=== PATIENT | male | born 1955 | race Caucasian/White ===

== ENCOUNTER 2021-05-05 15:23 | Emergency (ER) | payer OTHER ==
[2021-05-05 16:21] LABS: #Basophils 0.1 10x3/uL (0.0-0.2); #Eosinphils 0.1 10x3/uL (0.0-0.5); #Monocytes 1.1 10x3/uL (0.0-1.1); #Neutrophils 6.8 10x3/uL (1.5-8.4); %Basophils 0.6 % (0.0-2.0); %Eosinophils 1.2 % (0.0-6.0); %Lymphocytes 13.8 % (18.0-47.0); %Monocytes 11.5 % (0.0-10.0); %Neutrophils 71.6 % (40.0-75.0); Hemoglobin 14.2 g/dL (13.5-17.5); Mean Corpuscular HGB CONC 32.2 g/dL (32.0-36.0); Mean Corpuscular Hemoglobin 30.5 pg (27.0-33.0); Mean Corpuscular Volume 94.6 fl (81.2-95.1); Mean Platelet Volume 11.1 fl (7.4-10.4); Platelet Count 272 10x3/uL (150-450); RBC Distribution Width 13.9 % (11.5-14.5); Red Blood Cell (RBC) Count 4.66 10x6/uL (4.32-5.72); White Blood Cell (WBC) Count 9.5 10x3/uL (3.5-10.5)
[2021-05-05 16:30] LABS: ALT (SGPT) 20 U/L (8-55); AST (SGOT) 20 U/L (5-34); Albumin 4.2 g/dL (3.4-4.8); Alkaline Phosphatase 98 U/L (40-110); Anion Gap 14 mmol/L (10-20); BUN (Urea Nitrogen) 20 mg/dL (8.4-25.7); Bilirubin, Total 0.8 mg/dL (0.2-1.2); CK (CPK) 92 U/L (30-200); Calc. Creatinine Clearance 0 mL/min (70-130); Carbon Dioxide 26 mmol/L (23-31); Chloride 102 mmol/L (98-107); Globulin 2.9 g/dL (2.4-3.5); Glucose 109 mg/dL (80-115); Potassium 4.6 mmol/L (3.5-5.1); Protein, Total 7.1 g/dL (5.8-8.1); Sodium 137 mmol/L (136-145)
[2021-05-05] MEDS ORDERED: methylPREDNISolone Sod Succ/PF 125 MG/2 ML VIAL ONE (17:19)
[2021-05-05] MEDS ORDERED: Ventolin HFA Inhaler 60 PUFF INHALER ONE (17:20)
== END 2021-05-05 20:05 ==
LOC: CSHERS 15:23 → EEVIPCON 15:23 → CSHERS 20:05
DX: J44.1 Chronic obstructive pulmonary disease with (acute) exacerbation (principal); I49.3 Ventricular premature depolarization; I10 Essential (primary) hypertension; E78.5 Hyperlipidemia, unspecified; K21.9 Gastro-esophageal reflux disease without esophagitis; M19.90 Unspecified osteoarthritis, unspecified site
CPT/HCPCS: 36415; 71045; 80053; 82550; 83605; 83880; 84484; 85025; 93005; 93010; 96374; J2930

== ENCOUNTER 2025-01-22 02:48 | Inpatient (IN) | payer OTHER ==
[2025-01-22 03:27] LABS: #Basophils 0.04 10x3/uL (0.0-0.2); #Eosinophils 0.05 10x3/uL (0.0-0.5); #Monocytes 1.14 10x3/uL (0.0-1.1); #Neutrophils 7.68 10x3/uL (1.5-8.4); %Basophils 0.4 % (0.0-2.0); %Eosinophils 0.5 % (0.0-6.0); %Lymphocytes 11.4 % (18.0-47.0); %Monocytes 11.2 % (0.0-10.0); %Neutrophils 75.6 % (40.0-75.0); Hematocrit 35.1 % (38.8-50.0); Hemoglobin 11.4 g/dL (13.5-17.5); Mean Corpuscular Hemoglobin 29.8 pg (27.0-33.0); Mean Corpuscular Volume 91.6 fL (81.2-95.1); Platelet Count 394 10x3/uL (150-450); Red Blood Cell (RBC) Count 3.83 10x6/uL (4.32-5.72); White Blood Cell (WBC) Count 10.16 10x3/uL (3.5-10.5)
[2025-01-22 03:47] LABS: ALT (SGPT) 108 U/L (Less than 45); AST (SGOT) 48 U/L (11-34); Albumin 2.7 g/dL (3.1-4.5); Alkaline Phosphatase 91 U/L (40-110); Anion Gap 15 mmol/L (10-20); BUN (Urea Nitrogen) 31 mg/dL (8.4-25.7); Bilirubin, Total 1.7 mg/dL (0.3-1.2); Calc. Creatinine Clearance 0 mL/min (70-130); Calcium 8.4 mg/dL (7.8-10.44); Carbon Dioxide 28 mmol/L (23-31); Chloride 100 mmol/L (98-107); Globulin 3.5 g/dL (2.4-3.5); Glucose 101 mg/dL (80-115); Potassium 4.5 mmol/L (3.5-5.1); Sodium 138 mmol/L (136-145)
[2025-01-22 03:53] LABS: Troponin I 0.125 ng/mL (< 0.028)
[2025-01-22] MEDS ORDERED: Aspirin 325 MG TAB ONE (04:14)
[2025-01-22] MEDS ORDERED: Famotidine 20 MG TAB ONE (04:15)
[2025-01-22] MEDS ORDERED: Nitroglycerin 0.4 MG TAB (25 Tab Bottle) SL PRN (04:57)
[2025-01-22] MEDS ORDERED: Ondansetron PF 4 MG/2 ML Vial IVP PRN (04:57)
[2025-01-22] MEDS ORDERED: Acetaminophen 325 MG TAB PO PRN (04:57)
[2025-01-22] MEDS ORDERED: Electrolyte Replacement Protocol 1 EACH FS PRN (05:00)
[2025-01-22 05:51] LABS: Troponin I 0.128 ng/mL (< 0.028)
[2025-01-22] MEDS: dilTIAZem 30 MG TAB PO SCH (05:57)
[2025-01-22 08:25] LABS: Glucose, Urine (Dipstick) Normal (Negative); Leukocyte 25 (Negative); Protein, Urine (Dipstick) 15 mg/dl (Neg-Trace); Specific Gravity, Urine 1.015 (1.005-1.030)
[2025-01-22 08:36] LABS: Bacteria/HPF Rare-Few HPF (None Seen); CAUTI Indications for Culture Dysuria,urgency,freq; RBC/HPF 0-3 HPF (0-3); WBC/HPF 0-3 HPF (0-3)
[2025-01-22 08:37] LABS: Urine Culture Reflex No No
[2025-01-22 08:50] LABS: Troponin I 0.157 ng/mL (< 0.028)
[2025-01-22] MEDS: Aspirin Chewable 81 MG TAB PO SCH (09:45)
[2025-01-22] MEDS: Famotidine 20 MG TAB PO SCH (09:45)
[2025-01-22] MEDS: DULoxetine 30 MG CAP PO SCH (09:45)
[2025-01-22 12:33] LABS: ALT (SGPT) 152 U/L (Less than 45); AST (SGOT) 110 U/L (11-34); Albumin 2.7 g/dL (3.1-4.5); Alkaline Phosphatase 92 U/L (40-110); Anion Gap 17 mmol/L (10-20); BUN (Urea Nitrogen) 36 mg/dL (8.4-25.7); Bilirubin, Total 1.9 mg/dL (0.3-1.2); Calc. Creatinine Clearance 82 mL/min (70-130); Calcium 8.7 mg/dL (7.8-10.44); Carbon Dioxide 22 mmol/L (23-31); Chloride 99 mmol/L (98-107); Globulin 3.8 g/dL (2.4-3.5); Glucose 140 mg/dL (80-115); Magnesium 2.5 mg/dL (1.6-2.6); Potassium 4.4 mmol/L (3.5-5.1); Sodium 134 mmol/L (136-145)
[2025-01-22] MEDS: Divalproex Sodium DR 500 MG TAB PO SCH (20:44)
[2025-01-22] MEDS: Furosemide 40 MG TAB PO SCH (20:44)
[2025-01-22] MEDS ORDERED: Furosemide 40 MG TAB PO SCH (21:00)
[2025-01-22 22:31] LABS: Chlam.trachomatis by PCR,Urine Not Detected (NotDetected); GC N.gonorrhoeae PCR,UrineVOID Not Detected (NotDetected)
[2025-01-23 05:14] LABS: #Basophils 0.06 10x3/uL (0.0-0.2); #Eosinophils Less than 0.03 10x3/uL (0.0-0.5); #Monocytes 1.09 10x3/uL (0.0-1.1); #Neutrophils 17.35 10x3/uL (1.5-8.4); %Basophils 0.3 % (0.0-2.0); %Eosinophils 0.1 % (0.0-6.0); %Lymphocytes 4.0 % (18.0-47.0); %Monocytes 5.5 % (0.0-10.0); %Neutrophils 87.6 % (40.0-75.0); Hematocrit 35.1 % (38.8-50.0); Hemoglobin 11.4 g/dL (13.5-17.5); Mean Corpuscular Hemoglobin 29.8 pg (27.0-33.0); Mean Corpuscular Volume 91.9 fL (81.2-95.1); Platelet Count 379 10x3/uL (150-450); Red Blood Cell (RBC) Count 3.82 10x6/uL (4.32-5.72); White Blood Cell (WBC) Count 19.82 10x3/uL (3.5-10.5)
[2025-01-23 05:33] LABS: Anion Gap 18 mmol/L (10-20); BUN (Urea Nitrogen) 53 mg/dL (8.4-25.7); Calc. Creatinine Clearance 54 mL/min (70-130); Calcium 8.7 mg/dL (7.8-10.44); Carbon Dioxide 22 mmol/L (23-31); Cardiac Risk 4.1 (Less than 4.5); Chloride 96 mmol/L (98-107); Cholesterol 65 mg/dl (< 200 Desired); Glucose 110 mg/dL (80-115); HDL Cholesterol 16 mg/dL (>60 Neg Risk); LDL Cholesterol, Calculated 42 mg/dL; Potassium 4.9 mmol/L (3.5-5.1); Sodium 131 mmol/L (136-145); Triglycerides 34 mg/dL (Less than 150)
[2025-01-23] MEDS: Albuterol 2.5 MG (3 mL) NEB NEB PRN (08:00)
[2025-01-23] MEDS ORDERED: Aspirin 81 mg Enteric Coated Tablet PO SCH (09:00)
[2025-01-23] MEDS: NOREPINEPHRINE 8 MG/250 ML-D5W 250 ML IVPB SCH (09:22)
[2025-01-23] MEDS: VANCOMYCIN 2 GRAM/400 ML BAG 2 GM in Premix 1 BAG IVPB SCH (10:04)
[2025-01-23 10:36] LABS: ALV-art Gradient 302.250 mmHg (0-20); Actual Bicarbonate (HCO3a) 23.0 mEq/L (22-28); Analyzer IN Cardio CS ICU; Base Excess (BEa) -1.4 mEq/L (-2.0 to +3.0); CO2 Tension 37.4 mmHg (35.0-45.0); Calcium, Ionized (arterial) 1.12 mmol/L (1.12-1.30); Critical Notified By: Udy, RRT; Hematocrit-ABG 38 % (42.0-52.0); Hemoglobin (Hb) 12.8 g/dL (14.0-18.0); O2 Tension (PaO2), arterial 78.8 mmHg (> 70.0); Potassium - ABG Lab 4.80 mmol/L (3.70-5.30); Puncture Site Right Radial artery; RapidComm Collect By Udy, RRT; pH, Arterial 7.406 (7.35-7.45)
[2025-01-23 10:43] LABS: Legionella Urinary Ag Negative (Negative)
[2025-01-23 10:45] LABS: Strep pneumo Urine Ag NEGATIVE (NEGATIVE)
[2025-01-23 11:49] LABS: Influenza A by NAA Not Detected (NotDetected); Influenza B by NAA Not Detected (NotDetected); SARS-CoV-2 NAA Rapid Test Not Detected (NotDetected)
[2025-01-23] MEDS: Furosemide 40 MG (4 mL) VIAL SLOW IVP SCH ×2 (11:49→18:09)
[2025-01-23] MEDS: Famotidine 20 MG TAB PO SCH (17:12)
[2025-01-23] MEDS: Spironolactone 25 MG TAB PO SCH (17:13)
[2025-01-23] MEDS: Vancomycin 1 GM in Sodium Chloride 0.9% 250 ML 250 ML IVPB SCH (20:39)
[2025-01-23] MEDS ORDERED: Furosemide 40 MG (4 mL) VIAL SLOW IVP SCH (21:00)
[2025-01-24 03:59] LABS: Hematocrit 36.6 % (38.8-50.0); Hemoglobin 11.7 g/dL (13.5-17.5); Mean Corpuscular Hemoglobin 29.2 pg (27.0-33.0); Mean Corpuscular Volume 91.3 fL (81.2-95.1); Platelet Count 340 10x3/uL (150-450); Red Blood Cell (RBC) Count 4.01 10x6/uL (4.32-5.72); White Blood Cell (WBC) Count 17.61 10x3/uL (3.5-10.5)
[2025-01-24 04:09] LABS: Vancomycin, Random 26.5 ug/mL (See Comment)
[2025-01-24 04:11] LABS: ALT (SGPT) 2322 U/L (Less than 45); AST (SGOT) 1872 U/L (11-34); Albumin 2.4 g/dL (3.1-4.5); Alkaline Phosphatase 99 U/L (40-110); Anion Gap 16 mmol/L (10-20); BUN (Urea Nitrogen) 54 mg/dL (8.4-25.7); Bilirubin, Total 1.7 mg/dL (0.3-1.2); Calc. Creatinine Clearance 72 mL/min (70-130); Calcium 8.1 mg/dL (7.8-10.44); Carbon Dioxide 24 mmol/L (23-31); Chloride 103 mmol/L (98-107); Globulin 3.4 g/dL (2.4-3.5); Glucose 140 mg/dL (80-115); Potassium 3.9 mmol/L (3.5-5.1); Sodium 139 mmol/L (136-145)
[2025-01-24 04:23] LABS: Hypersegmented Neutrophil MODERATE; MDiff Complete? YES; Platelet Adequacy Comment Appears Adequate; RBC Morphology Within Normal Limits; Reflex for Review?? YES
[2025-01-24 04:56] LABS: Actual Bicarbonate (HCO3v) 30.1 mEq/L (22-28); Analyzer IN Cardio CS ICU; Base Excess 5.8 mEq/L (-2 - +2); Calcium, Ionized (venous) 1.08 mmol/L (1.16-1.32); Chloride (VBG) 99 mmol/L (98-106); Hematocrit-VBG 39 % (42.0-52.0); Hemoglobin (Hb) 13.1 g/dL (12.6-17.4); Potassium (VBG) 3.83 mmol/L (3.70-5.30); Puncture Site Other Site; RapidComm Collect By Lab; Sodium 135 mmol/L (133-146)
[2025-01-24 05:27] LABS: Magnesium 2.6 mg/dL (1.6-2.6)
[2025-01-24 07:17] LABS: Magnesium 2.6 mg/dL (1.6-2.6)
[2025-01-24] MEDS: Potassium Chloride 20 MEQ in Premix 1 BAG IVPB SCH (11:25)
[2025-01-24] MEDS: Famotidine 20 MG TAB PO SCH (12:36)
[2025-01-24] MEDS: Guaifenesin DM 100-10/5 ML UDCUP PO PRN (17:09)
[2025-01-24] MEDS ORDERED: VANCOMYCIN 1.25 GM/250 ML BAG 1.25 GM in Premix 1 BAG IVPB SCH (20:00)
[2025-01-24 21:09] LABS: Potassium 4.1 mmol/L (3.5-5.1)
[2025-01-25 04:09] LABS: Hematocrit 37.3 % (38.8-50.0); Hemoglobin 11.6 g/dL (13.5-17.5); Mean Corpuscular Hemoglobin 29.3 pg (27.0-33.0); Mean Corpuscular Volume 94.2 fL (81.2-95.1); Platelet Count 298 10x3/uL (150-450); Red Blood Cell (RBC) Count 3.96 10x6/uL (4.32-5.72); White Blood Cell (WBC) Count 16.27 10x3/uL (3.5-10.5)
[2025-01-25 04:17] LABS: Vancomycin, Random 9.8 ug/mL (See Comment)
[2025-01-25 04:21] LABS: ALT (SGPT) 1672 U/L (Less than 45); AST (SGOT) 677 U/L (11-34); Albumin 2.3 g/dL (3.1-4.5); Alkaline Phosphatase 93 U/L (40-110); Anion Gap 9 mmol/L (10-20); BUN (Urea Nitrogen) 49 mg/dL (8.4-25.7); Bilirubin, Total 1.5 mg/dL (0.3-1.2); Calc. Creatinine Clearance 93 mL/min (70-130); Calcium 8.3 mg/dL (7.8-10.44); Carbon Dioxide 29 mmol/L (23-31); Chloride 104 mmol/L (98-107); Globulin 3.4 g/dL (2.4-3.5); Glucose 168 mg/dL (80-115); Magnesium 2.8 mg/dL (1.6-2.6); Potassium 4.2 mmol/L (3.5-5.1); Sodium 138 mmol/L (136-145)
[2025-01-25 05:36] LABS: Anisocytosis SLIGHT = 6-15 cells (100X) (0-5/hpf); Burr Cells SLIGHT = 2-5 cells (100X) (0-1/hpf); Hypersegmented Neutrophil SLIGHT; MDiff Complete? YES; Macrocytosis SLIGHT = 6-15 cells (100X) (0-5/hpf); Ovalocytes SLIGHT = 2-5 cells (100X) (0-1/hpf); Platelet Adequacy Comment Appears Adequate; Poikilocytosis SLIGHT = 6-15 cells (100X) (0-5/hpf)
[2025-01-25] MEDS ORDERED: Iopamidol 300 61% 100 ML VIAL FS ONE (09:35)
[2025-01-25] MEDS ORDERED: Sevoflurane 250 ML INH ANEST BOTTLE ONE (10:33)
[2025-01-25] MEDS ORDERED: Nitroglycerin 50 MG/250 ML BOT 0 ML ONE (13:25)
[2025-01-25] MEDS ORDERED: Lidocaine 1% (PF) 30 ML VIAL ONE (13:25)
[2025-01-25] MEDS ORDERED: PHENYLEPHRINE-NS 100 MCG/ML 10 ML SYRINGE ONE (13:25)
[2025-01-25] MEDS ORDERED: Heparin 10,000 UNITS/ 10 ML VIAL ONE (13:26)
[2025-01-25] MEDS: Cefdinir 300 MG CAP PO SCH (20:45)
[2025-01-26 04:10] LABS: Hematocrit 38.8 % (38.8-50.0); Hemoglobin 12.1 g/dL (13.5-17.5); Mean Corpuscular Hemoglobin 29.8 pg (27.0-33.0); Mean Corpuscular Volume 95.6 fL (81.2-95.1); Platelet Count 249 10x3/uL (150-450); Red Blood Cell (RBC) Count 4.06 10x6/uL (4.32-5.72); White Blood Cell (WBC) Count 13.40 10x3/uL (3.5-10.5)
[2025-01-26 04:26] LABS: ALT (SGPT) 1270 U/L (Less than 45); AST (SGOT) 272 U/L (11-34); Albumin 2.2 g/dL (3.1-4.5); Alkaline Phosphatase 95 U/L (40-110); Anion Gap 12 mmol/L (10-20); BUN (Urea Nitrogen) 40 mg/dL (8.4-25.7); Bilirubin, Total 1.3 mg/dL (0.3-1.2); Calc. Creatinine Clearance 126 mL/min (70-130); Calcium 8.3 mg/dL (7.8-10.44); Carbon Dioxide 27 mmol/L (23-31); Chloride 105 mmol/L (98-107); Globulin 3.4 g/dL (2.4-3.5); Glucose 156 mg/dL (80-115); Magnesium 2.7 mg/dL (1.6-2.6); Potassium 4.8 mmol/L (3.5-5.1); Sodium 139 mmol/L (136-145)
[2025-01-26 04:42] LABS: Anisocytosis SLIGHT = 6-15 cells (100X) (0-5/hpf); MDiff Complete? YES; Macrocytosis SLIGHT = 6-15 cells (100X) (0-5/hpf); Ovalocytes SLIGHT = 2-5 cells (100X) (0-1/hpf); Platelet Adequacy Comment Appears Adequate; Poikilocytosis SLIGHT = 6-15 cells (100X) (0-5/hpf)
[2025-01-26] MEDS: ALPRAZolam 0.25 MG TAB PO PRN (15:00)
[2025-01-26] MEDS: Mupirocin 1 GM TUBE TP SCH (20:56)
[2025-01-27 03:38] LABS: #Basophils Less than 0.03 10x3/uL (0.0-0.2); #Eosinophils Less than 0.03 10x3/uL (0.0-0.5); #Monocytes 0.48 10x3/uL (0.0-1.1); #Neutrophils 10.63 10x3/uL (1.5-8.4); %Basophils 0.1 % (0.0-2.0); %Eosinophils 0.0 % (0.0-6.0); %Lymphocytes 3.1 % (18.0-47.0); %Monocytes 4.2 % (0.0-10.0); %Neutrophils 92.0 % (40.0-75.0); Hematocrit 38.7 % (38.8-50.0); Hemoglobin 12.2 g/dL (13.5-17.5); Mean Corpuscular Hemoglobin 30.0 pg (27.0-33.0); Mean Corpuscular Volume 95.1 fL (81.2-95.1); Platelet Count 213 10x3/uL (150-450); Red Blood Cell (RBC) Count 4.07 10x6/uL (4.32-5.72); White Blood Cell (WBC) Count 11.55 10x3/uL (3.5-10.5)
[2025-01-27 04:02] LABS: ALT (SGPT) 976 U/L (Less than 45); AST (SGOT) 127 U/L (11-34); Albumin 2.4 g/dL (3.1-4.5); Alkaline Phosphatase 103 U/L (40-110); Anion Gap 14 mmol/L (10-20); BUN (Urea Nitrogen) 34 mg/dL (8.4-25.7); Bilirubin, Total 1.3 mg/dL (0.3-1.2); Calc. Creatinine Clearance 121 mL/min (70-130); Calcium 8.4 mg/dL (7.8-10.44); Carbon Dioxide 25 mmol/L (23-31); Chloride 103 mmol/L (98-107); Globulin 3.3 g/dL (2.4-3.5); Glucose 191 mg/dL (80-115); Magnesium 2.4 mg/dL (1.6-2.6); Potassium 5.5 mmol/L (3.5-5.1); Sodium 136 mmol/L (136-145)
[2025-01-27] MEDS ORDERED: Sodium Polystyrene Sulfonate 15 GM (60 mL) BOT PO SCH (08:00)
[2025-01-27] MEDS: LOKELMA 10 GM PACKET PO SCH (08:43)
[2025-01-27 13:22] LABS: Anion Gap 11 mmol/L (10-20); BUN (Urea Nitrogen) 33 mg/dL (8.4-25.7); Calc. Creatinine Clearance 147 mL/min (70-130); Calcium 8.4 mg/dL (7.8-10.44); Carbon Dioxide 26 mmol/L (23-31); Chloride 103 mmol/L (98-107); Glucose 180 mg/dL (80-115); Potassium 5.0 mmol/L (3.5-5.1); Sodium 135 mmol/L (136-145)
[2025-01-28 03:29] LABS: #Basophils 0.03 10x3/uL (0.0-0.2); #Eosinophils Less than 0.03 10x3/uL (0.0-0.5); #Monocytes 0.95 10x3/uL (0.0-1.1); #Neutrophils 16.31 10x3/uL (1.5-8.4); %Basophils 0.2 % (0.0-2.0); %Eosinophils 0.0 % (0.0-6.0); %Lymphocytes 2.5 % (18.0-47.0); %Monocytes 5.3 % (0.0-10.0); %Neutrophils 91.3 % (40.0-75.0); Hematocrit 40.5 % (38.8-50.0); Hemoglobin 12.9 g/dL (13.5-17.5); Mean Corpuscular Hemoglobin 29.8 pg (27.0-33.0); Mean Corpuscular Volume 93.5 fL (81.2-95.1); Platelet Count 190 10x3/uL (150-450); Red Blood Cell (RBC) Count 4.33 10x6/uL (4.32-5.72); White Blood Cell (WBC) Count 17.86 10x3/uL (3.5-10.5)
[2025-01-28 03:44] LABS: ALT (SGPT) 716 U/L (Less than 45); AST (SGOT) 61 U/L (11-34); Albumin 2.5 g/dL (3.1-4.5); Alkaline Phosphatase 102 U/L (40-110); Anion Gap 12 mmol/L (10-20); BUN (Urea Nitrogen) 33 mg/dL (8.4-25.7); Bilirubin, Total 1.4 mg/dL (0.3-1.2); Calc. Creatinine Clearance 179 mL/min (70-130); Calcium 8.5 mg/dL (7.8-10.44); Carbon Dioxide 25 mmol/L (23-31); Chloride 104 mmol/L (98-107); Globulin 3.1 g/dL (2.4-3.5); Glucose 176 mg/dL (80-115); Potassium 5.5 mmol/L (3.5-5.1); Sodium 135 mmol/L (136-145)
[2025-01-28] MEDS: LOKELMA 10 GM PACKET PO SCH (09:19)
[2025-01-28] MEDS ORDERED: NOREPINEPHRINE 8 MG/250 ML-D5W 250 ML IVPB SCH (11:45)
[2025-01-29 03:45] LABS: #Basophils 0.06 10x3/uL (0.0-0.2); #Eosinophils Less than 0.03 10x3/uL (0.0-0.5); #Monocytes 1.41 10x3/uL (0.0-1.1); #Neutrophils 15.55 10x3/uL (1.5-8.4); %Basophils 0.3 % (0.0-2.0); %Eosinophils 0.0 % (0.0-6.0); %Lymphocytes 7.0 % (18.0-47.0); %Monocytes 7.6 % (0.0-10.0); %Neutrophils 83.7 % (40.0-75.0); Hematocrit 42.2 % (38.8-50.0); Hemoglobin 13.4 g/dL (13.5-17.5); Mean Corpuscular Hemoglobin 30.0 pg (27.0-33.0); Mean Corpuscular Volume 94.4 fL (81.2-95.1); Platelet Count 188 10x3/uL (150-450); Red Blood Cell (RBC) Count 4.47 10x6/uL (4.32-5.72); White Blood Cell (WBC) Count 18.58 10x3/uL (3.5-10.5)
[2025-01-29 04:01] LABS: ALT (SGPT) 529 U/L (Less than 45); AST (SGOT) 38 U/L (11-34); Albumin 2.5 g/dL (3.1-4.5); Alkaline Phosphatase 104 U/L (40-110); Anion Gap 10 mmol/L (10-20); BUN (Urea Nitrogen) 38 mg/dL (8.4-25.7); Bilirubin, Total 1.3 mg/dL (0.3-1.2); Calc. Creatinine Clearance 162 mL/min (70-130); Calcium 8.4 mg/dL (7.8-10.44); Carbon Dioxide 26 mmol/L (23-31); Chloride 106 mmol/L (98-107); Globulin 3.1 g/dL (2.4-3.5); Glucose 115 mg/dL (80-115); Potassium 5.4 mmol/L (3.5-5.1); Sodium 137 mmol/L (136-145)
[2025-01-29 15:29] LABS: Magnesium 2.1 mg/dL (1.6-2.6); Potassium 5.3 mmol/L (3.5-5.1)
[2025-01-29] MEDS: Melatonin 3 MG TAB PO PRN (20:20)
[2025-01-30 05:36] VITALS: BMI 38.0
[2025-01-30 05:50] LABS: #Basophils 0.05 10x3/uL (0.0-0.2); #Eosinophils 0.16 10x3/uL (0.0-0.5); #Monocytes 1.05 10x3/uL (0.0-1.1); #Neutrophils 11.54 10x3/uL (1.5-8.4); %Basophils 0.3 % (0.0-2.0); %Eosinophils 1.1 % (0.0-6.0); %Lymphocytes 10.1 % (18.0-47.0); %Monocytes 7.2 % (0.0-10.0); %Neutrophils 79.2 % (40.0-75.0); Hematocrit 42.8 % (38.8-50.0); Hemoglobin 13.3 g/dL (13.5-17.5); Mean Corpuscular Hemoglobin 29.1 pg (27.0-33.0); Mean Corpuscular Volume 93.7 fL (81.2-95.1); Platelet Count 153 10x3/uL (150-450); Red Blood Cell (RBC) Count 4.57 10x6/uL (4.32-5.72); White Blood Cell (WBC) Count 14.57 10x3/uL (3.5-10.5)
[2025-01-30 06:12] LABS: ALT (SGPT) 376 U/L (Less than 45); AST (SGOT) 36 U/L (11-34); Albumin 2.5 g/dL (3.1-4.5); Alkaline Phosphatase 89 U/L (40-110); Anion Gap 9 mmol/L (10-20); BUN (Urea Nitrogen) 39 mg/dL (8.4-25.7); Bilirubin, Total 1.8 mg/dL (0.3-1.2); Calc. Creatinine Clearance 156 mL/min (70-130); Calcium 8.6 mg/dL (7.8-10.44); Carbon Dioxide 28 mmol/L (23-31); Chloride 104 mmol/L (98-107); Globulin 2.9 g/dL (2.4-3.5); Glucose 86 mg/dL (80-115); Potassium 5.3 mmol/L (3.5-5.1); Sodium 136 mmol/L (136-145)
[2025-01-31 03:23] LABS: #Basophils 0.06 10x3/uL (0.0-0.2); #Eosinophils 0.18 10x3/uL (0.0-0.5); #Monocytes 1.16 10x3/uL (0.0-1.1); #Neutrophils 12.68 10x3/uL (1.5-8.4); %Basophils 0.4 % (0.0-2.0); %Eosinophils 1.2 % (0.0-6.0); %Lymphocytes 7.1 % (18.0-47.0); %Monocytes 7.5 % (0.0-10.0); %Neutrophils 81.7 % (40.0-75.0); Hematocrit 41.2 % (38.8-50.0); Hemoglobin 13.2 g/dL (13.5-17.5); Mean Corpuscular Hemoglobin 30.0 pg (27.0-33.0); Mean Corpuscular Volume 93.6 fL (81.2-95.1); Platelet Count 161 10x3/uL (150-450); Red Blood Cell (RBC) Count 4.40 10x6/uL (4.32-5.72); White Blood Cell (WBC) Count 15.50 10x3/uL (3.5-10.5)
[2025-01-31 03:39] LABS: ALT (SGPT) 275 U/L (Less than 45); AST (SGOT) 28 U/L (11-34); Albumin 2.4 g/dL (3.1-4.5); Alkaline Phosphatase 99 U/L (40-110); Anion Gap 9 mmol/L (10-20); BUN (Urea Nitrogen) 37 mg/dL (8.4-25.7); Bilirubin, Total 1.9 mg/dL (0.3-1.2); Calc. Creatinine Clearance 154 mL/min (70-130); Calcium 8.5 mg/dL (7.8-10.44); Carbon Dioxide 28 mmol/L (23-31); Chloride 104 mmol/L (98-107); Globulin 2.8 g/dL (2.4-3.5); Glucose 105 mg/dL (80-115); Potassium 4.9 mmol/L (3.5-5.1); Sodium 136 mmol/L (136-145)
[2025-01-31] MEDS: Senokot S 8.6-50 MG TAB PO SCH ×2 (15:21→20:38)
[2025-02-01 05:02] LABS: ALT (SGPT) 195 U/L (Less than 45); AST (SGOT) 28 U/L (11-34); Albumin 2.3 g/dL (3.1-4.5); Alkaline Phosphatase 99 U/L (40-110); Anion Gap 9 mmol/L (10-20); BUN (Urea Nitrogen) 29 mg/dL (8.4-25.7); Bilirubin, Total 1.8 mg/dL (0.3-1.2); Calc. Creatinine Clearance 185 mL/min (70-130); Calcium 8.4 mg/dL (7.8-10.44); Carbon Dioxide 28 mmol/L (23-31); Chloride 104 mmol/L (98-107); Globulin 2.8 g/dL (2.4-3.5); Glucose 98 mg/dL (80-115); Potassium 4.8 mmol/L (3.5-5.1); Sodium 136 mmol/L (136-145)
[2025-02-03 09:34] LABS: #Basophils 0.05 10x3/uL (0.0-0.2); #Eosinophils 0.23 10x3/uL (0.0-0.5); #Monocytes 1.34 10x3/uL (0.0-1.1); #Neutrophils 9.73 10x3/uL (1.5-8.4); %Basophils 0.4 % (0.0-2.0); %Eosinophils 1.8 % (0.0-6.0); %Lymphocytes 8.3 % (18.0-47.0); %Monocytes 10.4 % (0.0-10.0); %Neutrophils 75.6 % (40.0-75.0); Hematocrit 39.8 % (38.8-50.0); Hemoglobin 12.7 g/dL (13.5-17.5); Mean Corpuscular Hemoglobin 29.9 pg (27.0-33.0); Mean Corpuscular Volume 93.6 fL (81.2-95.1); Platelet Count 165 10x3/uL (150-450); Red Blood Cell (RBC) Count 4.25 10x6/uL (4.32-5.72); White Blood Cell (WBC) Count 12.87 10x3/uL (3.5-10.5)
[2025-02-03 11:31] LABS: ALT (SGPT) 110 U/L (Less than 45); AST (SGOT) 30 U/L (11-34); Albumin 2.2 g/dL (3.1-4.5); Alkaline Phosphatase 102 U/L (40-110); Anion Gap 11 mmol/L (10-20); BUN (Urea Nitrogen) 23 mg/dL (8.4-25.7); Bilirubin, Total 1.6 mg/dL (0.3-1.2); Calc. Creatinine Clearance 163 mL/min (70-130); Calcium 8.0 mg/dL (7.8-10.44); Carbon Dioxide 25 mmol/L (23-31); Chloride 106 mmol/L (98-107); Globulin 2.5 g/dL (2.4-3.5); Glucose 108 mg/dL (80-115); Potassium 4.7 mmol/L (3.5-5.1); Sodium 137 mmol/L (136-145)
[2025-02-03] MEDS: Furosemide 40 MG TAB PO SCH (11:53)
[2025-02-03] MEDS: Fleet Saline Enema 133 ML BOT PR SCH (14:32)
[2025-02-05 15:29] VITALS: BMI 35.0
[2025-02-05] MEDS: Scopolamine 1 mg/72 hour Patch TD SCH (16:04)
[2025-02-07 20:50] VITALS: BP 99/78; TEMP 97.4
== END 2025-02-07 21:34 | disposition hospice, inpatient (51) | DRG 871 ==
LOC: CSHERS 02:48 → CSHERHOLD 04:57 → EEVIPCON 04:57 → CSHTELE 05:43 → OBSVTOIN 12:38 → CSHICU 01-23 08:44 → CSHTELE 01-31 22:24
PROVIDERS: ADMIT Family Medicine; ATTEND Family Medicine
PROC: 5A09457 Assistance with Respiratory Ventilation, 24-96 Consecutive Hours, Continuous Positive Airway Pressure (ICD-10-PCS; 2025-01-23)
PROC: 3E03329 Introduction of Other Anti-infective into Peripheral Vein, Percutaneous Approach (ICD-10-PCS; 2025-01-23)
PROC: 4A023N7 Measurement of Cardiac Sampling and Pressure, Left Heart, Percutaneous Approach (ICD-10-PCS; principal; 2025-01-25)
PROC: B2111ZZ Fluoroscopy of Multiple Coronary Arteries using Low Osmolar Contrast (ICD-10-PCS; 2025-01-25)
DX: A41.9 Sepsis, unspecified organism (principal); I50.43 Acute on chronic combined systolic (congestive) and diastolic (congestive) heart failure; J96.01 Acute respiratory failure with hypoxia; J69.0 Pneumonitis due to inhalation of food and vomit; R65.21 Severe sepsis with septic shock; J44.1 Chronic obstructive pulmonary disease with (acute) exacerbation; N17.9 Acute kidney failure, unspecified; E87.1 Hypo-osmolality and hyponatremia; E87.20 Acidosis, unspecified; I47.20 Ventricular tachycardia, unspecified; I42.9 Cardiomyopathy, unspecified; I48.21 Permanent atrial fibrillation; Z66 Do not resuscitate; Z79.899 Other long term (current) drug therapy; Z88.0 Allergy status to penicillin; J44.9 Chronic obstructive pulmonary disease, unspecified; K21.9 Gastro-esophageal reflux disease without esophagitis; Z98.890 Other specified postprocedural states; Z87.891 Personal history of nicotine dependence; D64.9 Anemia, unspecified; I11.0 Hypertensive heart disease with heart failure; I44.7 Left bundle-branch block, unspecified; G47.33 Obstructive sleep apnea (adult) (pediatric); N18.2 Chronic kidney disease, stage 2 (mild); E87.8 Other disorders of electrolyte and fluid balance, not elsewhere classified; I50.810 Right heart failure, unspecified; E78.5 Hyperlipidemia, unspecified; G40.909 Epilepsy, unspecified, not intractable, without status epilepticus; K76.1 Chronic passive congestion of liver; E87.5 Hyperkalemia; I49.3 Ventricular premature depolarization; K59.00 Constipation, unspecified; Z79.82 Long term (current) use of aspirin
CPT/HCPCS: 36415; 36416; 36600; 71045; 74018; 80048; 80053; 80061; 80202; 81001; 82550; 82805; 83605; 83735; 83880; 84145; 84443; 84484; 85025; 85060; 87081; 87449; 87491; 87591; 87636; 87661; 87899; 93005; 93010; 93306; 93458; 94640; 94660; 94760; 94762; C1760; C1769; J0461; J0692; J1644; J1650; J1940; J2250; J2550; J2919; J3010; J3373; J3375; J3480; J7030; J7050; J7611; J7626; Q0162; Q9967